=== PATIENT | male | born 1955 | race Two or more races ===

== ENCOUNTER 2016-09-14 12:32 | Emergency (ER) | payer BC ==
[~2016-09-14] VITALS: Ht 165.1 cm; Wt 81.6 kg
[~2016-09-14 12:32] MED LIST: BENA20TA14 PO; HYDR12.56 PO
[2016-09-14 12:42] VITALS: BP 163/99
[2016-09-14 13:10] LABS: CONDITION Y; Eosinophils % (auto) 4.4 % (0.0-7.0); Red Cell Distribution Width 12.5 % (11.6-16.0)
[2016-09-14 13:31] LABS: Albumin 3.8 g/dL (3.4-5.0); Calcium 9.1 mg/dL (8.5-10.1); Potassium 3.7 mmol/L (3.5-5.1)
[2016-09-14 13:34] LABS: Bilirubin, Total 0.4 mg/dL (0.2-1.0); Total Protein 7.1 g/dL (6.4-8.2)
[2016-09-14 13:48] LABS: Basophils # (auto) 0 uL; Basophils % (auto) 0.5 % (0.0-2.0); Eosinophils # (auto) 0.3 uL; Hemoglobin 16.3 g/dL (13.5-17.5); Lymphocytes # (auto) 1.7 uL; Lymphocytes % (auto) 25.2 % (10.0-50.0); Mean Corpuscular Hemoglobin 31.8 pg (28.0-32.0); Mean Corpuscular Hgb Conc. 33.8 g/dL (32.0-36.0); Mean Platelet Volume 8.2 fL (7.4-10.4); Monocytes # (auto) 0.6 uL; Monocytes % (auto) 9.1 % (0.0-12.0); Neutrophils % (auto) 60.8 % (37.0-80.0); Platelet Count (auto) 257 10^3/uL (140-450); White Blood Cell 6.6 10^3/uL (4.4-10.8)
== END 2016-09-14 22:40 | disposition left against medical advice (07) ==
LOC: ER 12:32
DX: M79.89 Other specified soft tissue disorders (principal); M79.642 Pain in left hand; M79.641 Pain in right hand; Z53.21 Procedure and treatment not carried out due to patient leaving prior to being seen by health care provider
CPT/HCPCS: 36415; 80053; 85025